=== PATIENT | male | born 1960 | race African-American/Black ===

== ENCOUNTER 2017-06-15 18:08 | Emergency (ER) | payer MEDICAID ==
[~2017-06-15] VITALS: Ht 180.3 cm; Wt 84.4 kg
[2017-06-15 18:22] VITALS: BP 124/72; PULSE 79; RESP 18; TEMP 96.6; O2SAT 96
[2017-06-15 20:49] VITALS: BP 129/71; PULSE 78; RESP 16; TEMP 96.9; O2SAT 97
== END 2017-06-15 20:49 | disposition home or self-care (01) ==
LOC: SED 18:08
DX: J18.9 Pneumonia, unspecified organism (principal); I10 Essential (primary) hypertension
CPT/HCPCS: 71010; 99283

== ENCOUNTER 2017-06-19 07:54 | Emergency (ER) | payer MEDICAID ==
[~2017-06-19] VITALS: Ht 180.3 cm; Wt 83.9 kg
--- NOTE | 2017-06-19 07:54 | NUR ---
Note izabella in ED - 06/19/17 at 0808 by SDEDSTC Patient to bed to [facility] for evaluation. Side rails up. Report given to CELSO Cabrera.
[2017-06-19 08:00] VITALS: BP_SYST 112
--- NOTE | 2017-06-19 08:00 | NUR ---
Placed in room 2
--- NOTE | 2017-06-19 08:15 | NUR ---
Pt report received from CELSO Meneses. Pt c/o Left sided C/P since Tuesday, not improving. Pt was seen here in ER and Dx Pneumonia. Rx given for Levaquin 750 mg PO.
--- NOTE | 2017-06-19 08:17 | NUR ---
Dr. Casper at bedside to assess pt.
[2017-06-19 08:55] LABS: BASOPHILS # (AUTO) 0.1 K/uL (0.0-0.2); BASOPHILS % (AUTO) 1.2 % (0.0-2.0); EOSINOPHILS # (AUTO) 0.2 K/uL (0.0-0.4); HEMATOCRIT 38.4 % (36-54); HEMOGLOBIN 12.6 g/dL (14.0-18.0); LYMPHOCYTES # (AUTO) 1.3 K/uL (1.0-5.5); LYMPHOCYTES % (AUTO) 14.4 % (20.5-51.5); MEAN CORPUSCULAR HEMOGLOBIN 28 pg (27-31); MEAN CORPUSCULAR HGB CONC 33 % (32-36); MEAN CORPUSCULAR VOLUME 86 fL (79.0-98.0); MONOCYTES # (AUTO) 1.5 K/uL (0.0-1.0); MONOCYTES % (AUTO) 16.7 % (1.7-9.3); NEUTROPHILS # (AUTO) 6.2 K/uL (1.8-7.7); NEUTROPHILS % (AUTO) 65.7 % (40.0-70.0); PLATELET COUNT (AUTO) 241 K/uL (130-430); RED BLOOD CELL COUNT(AUTO) 4.46 MIL/uL (4.2-6.2); RED CELL DISTRIBUTION WIDTH 12.1 % (9.0-15.0); WHITE BLOOD COUNT (AUTO) 9.3 K/uL (4.8-10.8)
[2017-06-19 09:10] LABS: CALCIUM 8.9 mg/dL (8.4-11.0); CREATININE 1.22 mg/dL (0.55-1.30); POTASSIUM 3.8 mmol/L (3.5-5.1)
[2017-06-19 09:13] LABS: INR 1.2 (0.80-1.20); PROTHROMBIN TIME 11.9 SECS (9.5-12.5)
[2017-06-19 09:19] LABS: ALBUMIN 2.9 g/dL (3.4-4.8); TOTAL BILIRUBIN 0.9 mg/dL (0.0-1.0)
[2017-06-19 10:00] VITALS: BP_SYST 120
--- NOTE | 2017-06-19 10:00 | NUR ---
Patient given written and verbal discharge instructions and verbalizes understanding. ER MD discussed with patient the results and treatment provided. Patient in stable condition. ID arm band removed. IV catheter removed intact and dressing applied, no active bleeding. Rx of Albuterol given. Patient educated on pain management and to follow up with PMD. Pain Scale 4/10. Opportunity for questions provided and answered.
== END 2017-06-19 10:00 | disposition home or self-care (01) ==
LOC: SED 07:54
DX: J18.9 Pneumonia, unspecified organism (principal); I10 Essential (primary) hypertension
CPT/HCPCS: 36415; 71010; 80053; 82550-TC; 83880; 84484; 85025; 85610-TC; 85730-TC; 99285

== ENCOUNTER 2017-06-22 11:34 | Inpatient (IN) | payer OTHER, MEDICAID ==
[~2017-06-22] VITALS: Ht 180.3 cm; Wt 83.9 kg
[2017-06-22 11:47] VITALS: BP_SYST 163
[2017-06-22] MEDS ORDERED: ALBMDI INH (11:53)
[2017-06-22] MEDS ORDERED: LEVO750T45 PO (11:53)
[2017-06-22] MEDS ORDERED: IPRATROPIUM/ALBUTEROL SULFATE 3 ML AMPUL.NEB INH ONE (12:00)
[2017-06-22] MEDS ORDERED: ACETAMINOPHEN 500 MG TABLET ONE (12:10)
[2017-06-22] MEDS ORDERED: ACETAMINOPHEN 500 MG TABLET PO ONE (12:15)
[2017-06-22 12:24] LABS: CALCIUM 9.4 mg/dL (8.4-11.0); CREATININE 1.36 mg/dL (0.55-1.30); POTASSIUM 4.3 mmol/L (3.5-5.1)
[2017-06-22 12:26] LABS: BASOPHILS # (AUTO) 0.3 K/uL (0.0-0.2); BASOPHILS % (AUTO) 1.7 % (0.0-2.0); EOSINOPHILS # (AUTO) 0.1 K/uL (0.0-0.4); EOSINOPHILS % (AUTO) 0.6 % (0.0-4.0); HEMATOCRIT 40.8 % (36-54); HEMOGLOBIN 13.5 g/dL (14.0-18.0); INR 1.2 (0.80-1.20); LYMPHOCYTES # (AUTO) 0.8 K/uL (1.0-5.5); LYMPHOCYTES % (AUTO) 5.5 % (20.5-51.5); MEAN CORPUSCULAR HEMOGLOBIN 28 pg (27-31); MEAN CORPUSCULAR HGB CONC 33 % (32-36); MEAN CORPUSCULAR VOLUME 85 fL (79.0-98.0); MONOCYTES % (AUTO) 6.9 % (1.7-9.3); NEUTROPHILS # (AUTO) 12.5 K/uL (1.8-7.7); NEUTROPHILS % (AUTO) 85.3 % (40.0-70.0); PLATELET COUNT (AUTO) 336 K/uL (130-430); PROTHROMBIN TIME 11.8 SECS (9.5-12.5); RED BLOOD CELL COUNT(AUTO) 4.83 MIL/uL (4.2-6.2); RED CELL DISTRIBUTION WIDTH 12.3 % (9.0-15.0); WHITE BLOOD COUNT (AUTO) 14.7 K/uL (4.8-10.8)
[2017-06-22 12:29] LABS: ALBUMIN 2.9 g/dL (3.4-4.8); TOTAL BILIRUBIN 0.9 mg/dL (0.0-1.0)
[2017-06-22] MEDS ORDERED: PIPERACILLIN/TAZO 3.375 GM in NS 50 ML IV ONE (12:30)
[2017-06-22] MEDS ORDERED: PIPERACILLIN/TAZOBACTAM 3.375 GM/VIAL (ZOSYN) IV ONE (12:38)
[2017-06-22] MEDS ORDERED: PIPERACILLIN/TAZO 4.5 GM in NS 100 ML IV ONE (13:15)
[2017-06-22] MEDS ORDERED: AZITHROMYCIN 500 MG in NS 250 ML IV ONE (13:30)
[2017-06-22 14:01] VITALS: BP_SYST 113
[2017-06-22] MEDS ORDERED: ENAL20TA PO (14:41)
[2017-06-22] MEDS ORDERED: NOR10 PO (14:41)
[2017-06-22] MEDS ORDERED: HYDR25TA4 PO (14:41)
[2017-06-22] MEDS ORDERED: MORPHINE 2 MG/ML INJ. SYRINGE IVP PRN (16:30)
[2017-06-22] MEDS ORDERED: HYDROcodone/ACETAMIN 5-325 MG TAB (NORCO/ VICODIN) PO PRN (16:45)
[2017-06-22] MEDS ORDERED: ACETAMINOPHEN 500 MG TABLET PO PRN (16:45)
[2017-06-22] MEDS ORDERED: NACL 0.9% 1,000 ML IV SCH (16:45)
[2017-06-22] MEDS ORDERED: ACETAMINOPHEN 325 MG TABLET PO PRN (16:45)
[2017-06-22] MEDS ORDERED: MORPHINE 2 MG/ML INJ. SYRINGE ONE (16:46)
[2017-06-22 17:02] VITALS: BP_SYST 113
[2017-06-22 17:20] VITALS: BP_SYST 113
[2017-06-22] MEDS ORDERED: VANCOMYCIN HCL 1,500 MG in NS 250 ML IV ONE (19:00)
[2017-06-22 20:00] VITALS: BP_SYST 117
[2017-06-22] MEDS: IPRATROPIUM/ALBUTEROL SULFATE 3 ML AMPUL.NEB INH PRN (20:43)
[2017-06-22] MEDS ORDERED: PIPERACILLIN/TAZO 4.5GM/DEX-IS 100 ML IV SCH (22:00)
[2017-06-22] MEDS: PIPERACILLIN/TAZO 4.5GM/DEX-IS 100 ML IV SCH (22:32)
[2017-06-22] MEDS: MORPHINE 2 MG/ML INJ. SYRINGE IVP PRN (22:33)
[2017-06-22 23:31] VITALS: BP_SYST 120
[2017-06-23] VITALS (7 sets, daily range): BP systolic 116–135
[2017-06-23] MEDS: MORPHINE 2 MG/ML INJ. SYRINGE IVP PRN ×3 (04:11→21:03)
[2017-06-23] MEDS: PIPERACILLIN/TAZO 4.5GM/DEX-IS 100 ML IV SCH ×2 (05:29→14:25)
[2017-06-23 07:12] LABS: ALBUMIN 2.3 g/dL (3.4-4.8); BASOPHILS % (AUTO) 0.2 % (0.0-2.0); CALCIUM 8.6 mg/dL (8.4-11.0); CREATININE 1.22 mg/dL (0.55-1.30); EOSINOPHILS # (AUTO) 0.2 K/uL (0.0-0.4); HEMATOCRIT 34.7 % (36-54); HEMOGLOBIN 11.8 g/dL (14.0-18.0); LYMPHOCYTES # (AUTO) 1.4 K/uL (1.0-5.5); LYMPHOCYTES % (AUTO) 7.7 % (20.5-51.5); MEAN CORPUSCULAR HEMOGLOBIN 29 pg (27-31); MEAN CORPUSCULAR HGB CONC 34 % (32-36); MEAN CORPUSCULAR VOLUME 85 fL (79.0-98.0); MONOCYTES # (AUTO) 1.4 K/uL (0.0-1.0); MONOCYTES % (AUTO) 7.7 % (1.7-9.3); PLATELET COUNT (AUTO) 302 K/uL (130-430); POTASSIUM 3.8 mmol/L (3.5-5.1); RED BLOOD CELL COUNT(AUTO) 4.07 MIL/uL (4.2-6.2); RED CELL DISTRIBUTION WIDTH 12.1 % (9.0-15.0); TOTAL BILIRUBIN 1.1 mg/dL (0.0-1.0)
[2017-06-23 07:20] LABS: INR 1.1 (0.80-1.20); PROTHROMBIN TIME 11.6 SECS (9.5-12.5)
[2017-06-23] MEDS ORDERED: VANCOMYCIN HCL 1,250 MG in NS 250 ML IV SCH (09:00)
[2017-06-23] MEDS ORDERED: AZITHROMYCIN 500 MG in NS 250 ML IV SCH (09:00)
[2017-06-23] MEDS ORDERED: AZITHROMYCIN 250 MG in NS 250 ML IV SCH (10:00)
[2017-06-23 10:14] LABS: NEUTROPHILS % (AUTO) 83.4 % (40.0-70.0)
[2017-06-23] MEDS: IPRATROPIUM/ALBUTEROL SULFATE 3 ML AMPUL.NEB INH PRN (14:21)
[2017-06-23 18:36] LABS: BODY FLUID SOURCE/ TYPE PLEURAL; SOURCE/TYPE ,BODY FLUID THORACENTESIS
[2017-06-23 18:38] LABS: BF APPEARANCE UNSPUN SLIGHTLY CLOUDY (CLEAR); BODY FLUID COLOR DARK YELLOW (LT YELLOW); BODY FLUID TOTAL VOLUME 650 mL
[2017-06-23 18:43] LABS: EOSINOPHIL, BODY FLUID 0 %; LYMPHOCYTES, BODY FLUID 4 %; MONOCYTES,BODY FLUID 7 %; NEUTROPHIL, BODY FLUID 89 %; RBC, BODY FLUID 3767 /uL; WBC, BODY FLUID 5144 /uL
[2017-06-27 20:18] LABS: MYCOPLASMA PNEUMONIAE IgM <770 U/mL (0-769)
[2017-07-05 11:02] LABS: COCCIDIOIDES AB COMPLEMENT FIX Negative (NEGATIVE)
== END 2017-06-23 21:45 | disposition short-term general hospital (02) | DRG 871 ==
LOC: SED 11:34 → SMU 13:09
PROVIDERS: ADMIT Family Medicine; ATTEND Family Medicine
PROC: 0W993ZZ Drainage of Right Pleural Cavity, Percutaneous Approach (ICD-10-PCS; principal; 2017-06-23)
DX: A41.9 Sepsis, unspecified organism (principal); J18.9 Pneumonia, unspecified organism; J96.00 Acute respiratory failure, unspecified whether with hypoxia or hypercapnia; J90 Pleural effusion, not elsewhere classified; E44.0 Moderate protein-calorie malnutrition; N17.9 Acute kidney failure, unspecified; E87.1 Hypo-osmolality and hyponatremia; E66.9 Obesity, unspecified; R09.02 Hypoxemia; I10 Essential (primary) hypertension; Z79.899 Other long term (current) drug therapy
CPT/HCPCS: 32555; 36415; 36600; 71010; 71250-TC; 80053; 82803-TC; 82947-TC; 83605; 83615-TC; 84157-TC; 84484; 85025; 85610-TC; 85730-TC; 86635; 86738; 87040-TC; 87449; 88108; 88305; 89051-TC; 89060-TC; 93005; 94640; 94760; 96365; 99285; C1729; J0456; J2270; J2543; J3370; J7030; J7040; J7050

== ENCOUNTER 2017-08-26 05:47 | Emergency (ER) | payer MEDICAID, OTHER ==
[~2017-08-26] VITALS: Ht 180.3 cm; Wt 83.9 kg
[~2017-08-26 05:47] MED LIST: ALBMDI INH; ENAL20TA PO; HYDR25TA4 PO; LEVO750T45 PO; NOR10 PO
[2017-08-26 05:55] VITALS: BP_SYST 168
[2017-08-26] MEDS ORDERED: ATEN50TA PO (06:11)
[2017-08-26] MEDS ORDERED: DIPHENHYDRAMINE INJ 50 MG/ML VIAL IVP ONE (06:15)
[2017-08-26] MEDS ORDERED: PROCHLORPERAZINE EDISYLATE 10 MG/2 ML VIAL IVP ONE (06:15)
[2017-08-26 06:36] LABS: BASOPHILS % (AUTO) 0.7 % (0.0-2.0); EOSINOPHILS # (AUTO) 0.2 K/uL (0.0-0.4); EOSINOPHILS % (AUTO) 3.9 % (0.0-4.0); HEMATOCRIT 42.2 % (36-54); HEMOGLOBIN 13.5 g/dL (14.0-18.0); LYMPHOCYTES # (AUTO) 1.9 K/uL (1.0-5.5); LYMPHOCYTES % (AUTO) 39.2 % (20.5-51.5); MEAN CORPUSCULAR HEMOGLOBIN 28 pg (27-31); MEAN CORPUSCULAR HGB CONC 32 % (32-36); MEAN CORPUSCULAR VOLUME 87 fL (79.0-98.0); MONOCYTES # (AUTO) 0.4 K/uL (0.0-1.0); MONOCYTES % (AUTO) 8.9 % (1.7-9.3); NEUTROPHILS # (AUTO) 2.3 K/uL (1.8-7.7); NEUTROPHILS % (AUTO) 47.3 % (40.0-70.0); PLATELET COUNT (AUTO) 191 K/uL (130-430); RED BLOOD CELL COUNT(AUTO) 4.86 MIL/uL (4.2-6.2); RED CELL DISTRIBUTION WIDTH 14.9 % (9.0-15.0); WHITE BLOOD COUNT (AUTO) 4.8 K/uL (4.8-10.8)
[2017-08-26 06:52] LABS: CALCIUM 9.1 mg/dL (8.4-11.0); CREATININE 1.04 mg/dL (0.55-1.30); POTASSIUM 3.3 mmol/L (3.5-5.1)
[2017-08-26 06:54] LABS: TOTAL BILIRUBIN 0.9 mg/dL (0.0-1.0)
[2017-08-26 06:55] LABS: ALBUMIN 3.9 g/dL (3.4-4.8)
[2017-08-26 07:35] VITALS: BP_SYST 149
== END 2017-08-26 07:35 | disposition home or self-care (01) ==
LOC: SED 05:47
DX: G44.209 Tension-type headache, unspecified, not intractable (principal); I10 Essential (primary) hypertension
CPT/HCPCS: 36415; 80053; 83690; 83880; 84484; 85025; 93005; 96374; 96375; 99285; J0780; J1200; J7030

== ENCOUNTER 2019-02-05 18:30 | Emergency (ER) | payer OTHER, MEDICAID ==
[~2019-02-05] VITALS: Ht 180.3 cm; Wt 90.7 kg
[~2019-02-05 18:30] MED LIST changes: +ATEN50TA PO; -ENAL20TA PO; -LEVO750T45 PO; -NOR10 PO
[2019-02-05 18:33] VITALS: BP_SYST 166
[2019-02-05] MEDS ORDERED: DIPH-TET-PERTUS Vaccine 0.5 ML VIAL (ADACEL) I.M. ONE (18:45)
[2019-02-05 19:09] VITALS: BP_SYST 153
== END 2019-02-05 19:09 ==
LOC: SED 18:30
DX: R22.0 Localized swelling, mass and lump, head (principal); I10 Essential (primary) hypertension; Z79.899 Other long term (current) drug therapy; V43.52XA Car driver injured in collision with other type car in traffic accident, initial encounter; Y93.89 Activity, other specified; Y92.410 Unspecified street and highway as the place of occurrence of the external cause; Y99.8 Other external cause status
CPT/HCPCS: 90715; 99283